=== PATIENT | male | born 1945 | race Caucasian/White ===

== ENCOUNTER 2016-11-15 22:12 | Emergency (ER) | payer MEDICARE, BC ==
[2016-11-15] MEDS ORDERED: ACETAMINOPHEN TAB 500 MG TAB PO STA (22:46)
[2016-11-15] MEDS ORDERED: IBUPROFEN IV 600 MG in SODIUM CHLORIDE 0.9% 250 ML IV STA (22:46)
--- NOTE | 2016-11-15 22:50 | ED ---
General Adult HPI - General Chief complaint: Chest Pain Stated complaint: Chest discomfort Time Seen by Provider: 11/15/16 22:20 Source: patient, RN notes reviewed Mode of arrival: ambulatory Limitations: no limitations - History of Present Illness Initial comments: This is a 8-year-old male who presents to the emergency department with past medical history significant for diabetes hypertension high cholesterol. Patient states he comes in today because he started having chest pain this afternoon is in the center chest and is no radiation of the pain. Patient states it's worse with taking a deep breath and it's better if he leans forward and worse if he lays flat. Patient states he went for a walk they did not improve his symptoms. Patient states he did not eat anything for dinner and it continued to bother him if he took deep breaths. Patient states taking shallow breaths he doesn't have any pain at all. Patient was unaware that he had a fever when he came in. Patient denies any cough or cold-like symptoms per patient denies any sore throat. Patient denies any patient denies numbness weakness. Patient denies any lightheadedness dizziness or near syncopal episode. Patient denies any abdominal pain. Patient denies nausea vomiting or diarrhea. Patient denies any rashes lesions or any areas of redness that are unusual on his body. Patient states he did get the flu shot. - Related Data Home Medications Medication Instructions Recorded Confirmed ALPRAZolam [Xanax] 0.25 mg PO BID PRN 11/15/16 11/15/16 Ascorbic Acid [Vitamin C] 1,000 mg PO DAILY 11/15/16 11/15/16 Cinnamon Bark [Cinnamon] 1,000 mg PO DAILY 11/15/16 11/15/16 Hydrochlorothiazide [Hydrodiuril] 25 mg PO DAILY 11/15/16 11/15/16 Ibuprofen [Motrin] 800 mg PO TID PRN 11/15/16 11/15/16 Lisinopril [Zestril] 20 mg PO HS 11/15/16 11/15/16 Multivit-Min/FA/Lycopen/Lutein 1 tab PO DAILY 11/15/16 11/15/16 [Centrum Silver Men Tablet] [place]-3 Fatty Acids/Fish Oil [Fish 1 cap PO BID 11/15/16 11/15/16 Oil 1,000 mg Softgel] Omeprazole 20 mg PO DAILY 11/15/16 11/15/16 Potassium Chloride [K-Tab ER] 10 meq PO BID 11/15/16 11/15/16 Pravastatin Sodium [Pravachol] 40 mg PO DAILY 11/15/16 11/15/16 Vitamin E (Dl,Tocopheryl Acet) 400 unit PO DAILY 11/15/16 11/15/16 [Vitamin E] metFORMIN HCL [Glucophage] 1,000 mg PO BID 11/15/16 11/15/16 sitaGLIPtin [Januvia] 100 mg PO DAILY 11/15/16 11/15/16 Previous Rx's Medication Instructions Recorded predniSONE 40 mg PO DAILY #8 tab 11/16/16 Allergies Allergy/AdvReac Type Severity Reaction Status Date / Time No Known Allergies Allergy Verified 11/15/16 22:38 Review of Systems ROS Statement: Those systems with pertinent positive or pertinent negative responses have been documented in the HPI. ROS Other: All systems not noted in ROS Statement are negative. Past Medical History Past Medical History: Diabetes Mellitus, Hyperlipidemia, Hypertension History of Any Multi-Drug Resistant Organisms: None Reported Past Surgical History: Orthopedic Surgery Additional Past Surgical History / Comment(s): lt knee,carpal tunnel Past Psychological History: Anxiety Smoking Status: Never smoker Past Alcohol Use History: Rare Past Drug Use History: None Reported General Exam - General Exam Comments Initial Comments: GENERAL: Patient is well-developed and well-nourished. Patient is nontoxic and well- hydrated and is in mild distress. ENT: Neck is soft and supple. No significant lymphadenopathy is noted. Oropharynx is clear. Moist mucous membranes. Neck has full range of motion without eliciting any pain. EYES: The sclera were anicteric and conjunctiva were pink and moist. Extraocular movements were intact and pupils were equal round and reactive to light. Eyelids were unremarkable. PULMONARY: Unlabored respirations. Good breath sounds bilaterally. No audible rales rhonchi or wheezing was noted. CARDIOVASCULAR: Patient is tachycardic in the 120 beats a minute ABDOMEN: Soft and nontender with normal bowel sounds. No palpable organomegaly was noted. There is no palpable pulsatile mass. SKIN: Skin is clear with no lesions or rashes and otherwise unremarkable. NEUROLOGIC: Patient is alert and oriented x3. Cranial nerves II through XII are grossly intact. Motor and sensory are also intact. Normal speech, volume and content. Symmetrical smile. MUSCULOSKELETAL: Normal extremities with adequate strength and full range of motion. No lower extremity swelling or edema. No calf tenderness. LYMPHATICS: No significant lymphadenopathy is noted PSYCHIATRIC: Normal psychiatric evaluation. Normal interpersonal interactions appears functionally intact in deals appropriately with others. No signs of depression. No signs of anxiety. Limitations: no limitations Course Vital Signs 11/15/16 11/15/16 11/16/16 22:16 23:36 00:13 Temperature 101.5 F H 99.4 F Pulse Rate 130 H 104 H Pulse Rate [ 109 H Right Radial] Respiratory 24 18 Rate Blood Pressure 145/90 138/79 O2 Sat by Pulse 97 99 Oximetry Medical Decision Making - Medical Decision Making EKG shows sinus tachycardia at 120 bpm DC interval is 182 QRS is 98 QT interval 302 QTC is 426. Patient's EKG shows no ST segment elevation or depression. Patient does have some Q waves in leads 3 and aVF there is no old EKG to compare to. Patient's chest x-ray shows no acute abnormality. I spoke with Dr. Martins and he agrees the patient sounds like he has pericarditis and since his symptoms started at noon today and there is no enzyme elevation I felt comfortable sending the patient home and he will follow up with Dr. Martins - Lab Data Result diagrams: 11/15/16 23:08 11/15/16 23:08 Lab Results 11/15/16 11/15/16 11/15/16 Range/Units 23:05 23:05 23:08 WBC (3.8-10.6) k/uL RBC (4.30-5.90) m/uL Hgb (13.0-17.5) gm/dL Hct (39.0-53.0) % MCV (80.0-100.0) fL MCH (25.0-35.0) pg MCHC (31.0-37.0) g/dL RDW (11.5-15.5) % Plt Count (150-450) k/uL Neutrophils % % Lymphocytes % % Monocytes % % Eosinophils % % Basophils % % Neutrophils # (1.3-7.7) k/uL Lymphocytes # (1.0-4.8) k/uL Monocytes # (0-1.0) k/uL Eosinophils # (0-0.7) k/uL Basophils # (0-0.2) k/uL PT (9.0-12.0) sec INR (<1.1) APTT (22.0-30.0) sec Sodium (137-145) mmol/L Potassium (3.5-5.1) mmol/L Chloride (98-107) mmol/L Carbon Dioxide (22-30) mmol/L Anion Gap mmol/L BUN (9-20) mg/dL Creatinine (0.66-1.25) mg/dL Est GFR (MDRD) Af Amer (>60 ml/min/1.73 sqM) Est GFR (MDRD) Non-Af (>60 ml/min/1.73 sqM) Glucose (74-99) mg/dL Plasma Lactic Acid Darryn (0.7-2.0) mmol/L Calcium (8.4-10.2) mg/dL Total Bilirubin (0.2-1.3) mg/dL AST (17-59) U/L ALT (21-72) U/L Alkaline Phosphatase (38-126) U/L Total Creatine Kinase 92 (55-170) U/L CK-MB (CK-2) 1.2 (0.0-2.4) ng/mL CK-MB (CK-2) Rel Index 1.3 Troponin I <0.012 (0.000-0.034) ng/mL Total Protein (6.3-8.2) g/dL Albumin (3.5-5.0) g/dL Urine Color Yellow Urine Appearance Clear (Clear) Urine pH 5.5 (5.0-8.0) Ur Specific Comfort 1.013 (1.001-1.035) Urine Protein Trace H (Negative) Urine Glucose (UA) 4+ H (Negative) Urine Ketones 1+ H (Negative) Urine Blood Negative (Negative) Urine Nitrite Negative (Negative) Urine Bilirubin Negative (Negative) Urine Urobilinogen <2.0 (<2.0) mg/dL Ur Leukocyte Esterase Negative (Negative) Influenza Type A RNA Not Detected (Not Detectd) Influenza Type B (PCR) Not Detected (Not Detectd) 11/15/16 11/15/16 11/15/16 Range/Units 23:08 23:08 23:08 WBC 10.5 (3.8-10.6) k/uL RBC 4.29 L (4.30-5.90) m/uL Hgb 13.9 (13.0-17.5) gm/dL Hct 38.9 L (39.0-53.0) % MCV 90.6 (80.0-100.0) fL MCH 32.3 (25.0-35.0) pg MCHC 35.7 (31.0-37.0) g/dL RDW 12.5 (11.5-15.5) % Plt Count 159 (150-450) k/uL Neutrophils % 84 % Lymphocytes % 7 % Monocytes % 7 % Eosinophils % 1 % Basophils % 0 % Neutrophils # 8.8 H (1.3-7.7) k/uL Lymphocytes # 0.7 L (1.0-4.8) k/uL Monocytes # 0.7 (0-1.0) k/uL Eosinophils # 0.1 (0-0.7) k/uL Basophils # 0.0 (0-0.2) k/uL PT (9.0-12.0) sec INR (<1.1) APTT (22.0-30.0) sec Sodium 136 L (137-145) mmol/L Potassium 4.4 (3.5-5.1) mmol/L Chloride 102 (98-107) mmol/L Carbon Dioxide 20 L (22-30) mmol/L Anion Gap 14 mmol/L BUN 22 H (9-20) mg/dL Creatinine 1.00 (0.66-1.25) mg/dL Est GFR (MDRD) Af Amer >60 (>60 ml/min/1.73 sqM) Est GFR (MDRD) Non-Af >60 (>60 ml/min/1.73 sqM) Glucose 244 H (74-99) mg/dL Plasma Lactic Acid Darryn 1.5 (0.7-2.0) mmol/L Calcium 9.4 (8.4-10.2) mg/dL Total Bilirubin 1.5 H (0.2-1.3) mg/dL AST 27 (17-59) U/L ALT 47 (21-72) U/L Alkaline Phosphatase 55 (38-126) U/L Total Creatine Kinase (55-170) U/L CK-MB (CK-2) (0.0-2.4) ng/mL CK-MB (CK-2) Rel Index Troponin I (0.000-0.034) ng/mL Total Protein 7.0 (6.3-8.2) g/dL Albumin 4.4 (3.5-5.0) g/dL Urine Color Urine Appearance (Clear) Urine pH (5.0-8.0) Ur Specific Comfort (1.001-1.035) Urine Protein (Negative) Urine Glucose (UA) (Negative) Urine Ketones (Negative) Urine Blood (Negative) Urine Nitrite (Negative) Urine Bilirubin (Negative) Urine Urobilinogen (<2.0) mg/dL Ur Leukocyte Esterase (Negative) Influenza Type A RNA (Not Detectd) Influenza Type B (PCR) (Not Detectd) 11/15/16 Range/Units 23:08 WBC (3.8-10.6) k/uL RBC (4.30-5.90) m/uL Hgb (13.0-17.5) gm/dL Hct (39.0-53.0) % MCV (80.0-100.0) fL MCH (25.0-35.0) pg MCHC (31.0-37.0) g/dL RDW (11.5-15.5) % Plt Count (150-450) k/uL Neutrophils % % Lymphocytes % % Monocytes % % Eosinophils % % Basophils % % Neutrophils # (1.3-7.7) k/uL Lymphocytes # (1.0-4.8) k/uL Monocytes # (0-1.0) k/uL Eosinophils # (0-0.7) k/uL Basophils # (0-0.2) k/uL PT 10.6 (9.0-12.0) sec INR 1.1 (<1.1) APTT 21.0 L (22.0-30.0) sec Sodium (137-145) mmol/L Potassium (3.5-5.1) mmol/L Chloride (98-107) mmol/L Carbon Dioxide (22-30) mmol/L Anion Gap mmol/L BUN (9-20) mg/dL Creatinine (0.66-1.25) mg/dL Est GFR (MDRD) Af Amer (>60 ml/min/1.73 sqM) Est GFR (MDRD) Non-Af (>60 ml/min/1.73 sqM) Glucose (74-99) mg/dL Plasma Lactic Acid Darryn (0.7-2.0) mmol/L Calcium (8.4-10.2) mg/dL Total Bilirubin (0.2-1.3) mg/dL AST (17-59) U/L ALT (21-72) U/L Alkaline Phosphatase (38-126) U/L Total Creatine Kinase (55-170) U/L CK-MB (CK-2) (0.0-2.4) ng/mL CK-MB (CK-2) Rel Index Troponin I (0.000-0.034) ng/mL Total Protein (6.3-8.2) g/dL Albumin (3.5-5.0) g/dL Urine Color Urine Appearance (Clear) Urine pH (5.0-8.0) Ur Specific Comfort (1.001-1.035) Urine Protein (Negative) Urine Glucose (UA) (Negative) Urine Ketones (Negative) Urine Blood (Negative) Urine Nitrite (Negative) Urine Bilirubin (Negative) Urine Urobilinogen (<2.0) mg/dL Ur Leukocyte Esterase (Negative) Influenza Type A RNA (Not Detectd) Influenza Type B (PCR) (Not Detectd) Disposition Clinical Impression: Viral illness Disposition: HOME SELF-CARE Instructions: Acute Pericarditis (ED), Viral Syndrome (ED) Prescriptions: predniSONE 40 mg PO DAILY #8 tab Referrals: Arsenio Martins MD [Primary Care Provider] - 1-2 days Time of Disposition: 00:42
[2016-11-15] MEDS: SODIUM CHLORIDE 0.9% 500 ML IV SCH ×2 (23:04→23:19)
[2016-11-15 23:20] LABS: Basophils % (A) 0 %; CH 32.5; Eosinophils # (A) 0.1 k/uL (0-0.7); Eosinophils % (A) 1 %; HCT 38.9 % (39.0-53.0); HDW 2.79; HGB 13.9 gm/dL (13.0-17.5); Luc # (Auto) 0.17; Luc % (Auto) 2; Lymphocytes # (A) 0.7 k/uL (1.0-4.8); Lymphocytes % (A) 7 %; MCH 32.3 pg (25.0-35.0); MCHC 35.7 g/dL (31.0-37.0); MCV 90.6 fL (80.0-100.0); Mean Platelet Volume 6.9; Monocytes # (A) 0.7 k/uL (0-1.0); Monocytes % (A) 7 %; Neutrophils # (A) 8.8 k/uL (1.3-7.7); Neutrophils % (A) 84 %; RBC 4.29 m/uL (4.30-5.90); RDW 12.5 % (11.5-15.5); WBC 10.5 k/uL (3.8-10.6); WBC (Perox) 10.82
[2016-11-15 23:27] LABS: INR 1.1 (<1.1); Prothrombin Time 10.6 sec (9.0-12.0)
[2016-11-15 23:28] LABS: ALT 47 U/L (21-72); AST 27 U/L (17-59); Alkaline Phosphatase 55 U/L (38-126); Anion Gap 14 mmol/L; Blood Urea Nitrogen 22 mg/dL (9-20); Calcium 9.4 mg/dL (8.4-10.2); Carbon Dioxide 20 mmol/L (22-30); Chloride 102 mmol/L (98-107); Glucose 244 mg/dL (74-99); Non-African American GFR(MDRD) >60 (>60 ml/min/1.73 sqM); Potassium 4.4 mmol/L (3.5-5.1); Sodium 136 mmol/L (137-145); Total Bilirubin 1.5 mg/dL (0.2-1.3)
[2016-11-15 23:29] LABS: Appearance,Urine Clear (Clear); Bilirubin,Urine Negative (Negative); Glucose,Urine (UA) 4+ (Negative); Ketones,Urine 1+ (Negative); Leukocyte Esterase,Urine Negative (Negative); Nitrite,Urine Negative (Negative); PH, Urine 5.5 (5.0-8.0); Protein,Urine Trace (Negative); Specific Gravity,Urine 1.013 (1.001-1.035); UA Billing (MACRO vs. MICRO) CHEM; Urobilinogen,Urine <2.0 mg/dL (<2.0)
[2016-11-15 23:38] LABS: Creatine Kinase 92 U/L (55-170)
[2016-11-15 23:52] LABS: Creatine Kinase MB 1.2 ng/mL (0.0-2.4); Troponin I <0.012 ng/mL (0.000-0.034)
--- NOTE | 2016-11-16 00:07 | XR ---
Chest PA and lateral views INDICATION: Fever COMPARISON: None. FINDINGS: PA and lateral views of the chest are obtained. The cardiomediastinal silhouette is within normal limits. Lungs are clear. No pleural effusion or pneumothorax. Flattening of the hemidiaphragms is suggestive of chronic obstructive pulmonary disease. Bony elements are within normal limits. IMPRESSION: No radiographic evidence of acute cardiopulmonary disease.
[2016-11-16 00:14] VITALS: RESP 18
[2016-11-16] MEDS ORDERED: methylPREDNISolone SOD SUCCI 125 MG/2 ML VIAL IV STA (00:29)
[2016-11-16] MEDS ORDERED: KETOROLAC 60 MG/2 ML VIAL IVP STA (00:36)
[2016-11-16 00:57] VITALS: BP 138/81; PULSE 98; TEMP 100
== END 2016-11-16 00:57 | disposition home or self-care (01) ==
LOC: EC 22:12
DX: B34.9 Viral infection, unspecified (principal); R00.0 Tachycardia, unspecified; R07.89 Other chest pain; E11.9 Type 2 diabetes mellitus without complications; E78.5 Hyperlipidemia, unspecified; I10 Essential (primary) hypertension; Z79.84 Long term (current) use of oral hypoglycemic drugs; Z79.899 Other long term (current) drug therapy
CPT/HCPCS: 99285; 96374; 96375 ×2; 96361 ×2; 36415; 93005; 80053; 82550; 82553; 83605; 84484; 85025; 85610; 85730; 81003; 87040; 87086; 87502; 71020; J2930; J1885; J1741

== ENCOUNTER → 2018-09-03 | Outpatient (CLI) | payer MEDICARE, BC ==
--- NOTE | 2018-09-03 14:02 | XR ---
EXAMINATION TYPE: XR chest 2V DATE OF EXAM: 09/03/2018 COMPARISON: Chest x-ray November 15, 2016. HISTORY: Presurgical study. TECHNIQUE: Frontal and lateral views of the chest are obtained. FINDINGS: Cannot exclude underlying emphysematous change. There is no focal air space opacity, pleura l effusion, or pneumothorax seen. The cardiac silhouette size is within normal limits. The osseous structures are intact. IMPRESSION: No acute cardiopulmonary process. No significant change from prior.
== END | disposition home or self-care (01) ==
LOC: RADXRMAIN 13:47
PROVIDERS: ATTEND Internal Medicine
DX: Z01.818 Encounter for other preprocedural examination (principal)
CPT/HCPCS: 71046

== ENCOUNTER → 2022-03-01 | Outpatient (CLI) | payer MEDICARE, BC ==
--- NOTE | 2022-03-02 08:33 | XR ---
EXAMINATION TYPE: XR lumbar spine 2 or 3V DATE OF EXAM: 03/01/2022 5:36 PM INDICATION: Patient age:Male; 76 years old; Reason for study: J69.0 PNEUMONITIS DUE TO INHALATION OF FOOD AND VO; PHH. COMPARISON: None TECHNIQUE: Frontal, lateral and coned in L5-S1 lateral views of the spine. FINDINGS: Disc degeneration changes most pronounced at L3-L4 and L4-5 with endplate sclerosis and ost eophytes. The spinal alignment is grossly maintained. No evidence of any acute osseous pathology vert ebral bodies are maintained in height. Scattered facet joint arthropathy seen throughout the spine wi th at least mild L4-L5 and L5-S1 neural foraminal stenosis. IMPRESSION: Mild disc degeneration changes most pronounced in the lower thoracic spine with facet joint arthropat hy and at least mild L4-L5 and L5-S1 neural foraminal stenosis.
== END | disposition home or self-care (01) ==
LOC: RADXRMAIN 17:16
PROVIDERS: ATTEND Internal Medicine Geriatric Medicine
DX: M51.26 Other intervertebral disc displacement, lumbar region (principal); M47.817 Spondylosis without myelopathy or radiculopathy, lumbosacral region; M99.73 Connective tissue and disc stenosis of intervertebral foramina of lumbar region
CPT/HCPCS: 72100

== ENCOUNTER → 2022-03-20 | Outpatient (CLI) | payer MEDICARE, BC ==
--- NOTE | 2022-03-20 10:48 | MR ---
EXAMINATION TYPE: MR lumbar spine wo/w con DATE OF EXAM: 03/20/2022 COMPARISON: X-ray 03/01/2022 HISTORY: Pain TECHNIQUE: T1 and T2 axial and sagittal images of the lumbar spine are submitted. FINDINGS: There is no abnormal signal seen within the visualized spinal cord or paraspinal soft tissu es. At T11-T12 there is severe degenerative disc disease with vacuum disc. This level is not included in the [id number] on axial images. At [id number] there is minimal left paracentral disc bulging but no canal stenosis, discrete herniatio n or foraminal encroachment. At L1-2 there is no disc herniation, degenerative disc disease, or canal stenosis. No foraminal encro achment. At L2-3 there is no degenerative disc disease or disc herniation. No foraminal encroachment. No canal stenosis. Mild hypertrophic changes of the facets. At L3-4 there is severe degenerative disc disease with discogenic marrow changes. Broad-based disc pr otrusion greater paracentrally and laterally left with hypertrophic change of the facets and ligament um flavum. Severe bilateral foraminal encroachment and canal stenosis. At L4-5 there is grade 1 anterolisthesis with advanced severe facet arthropathy and ligamentum flavum hypertrophy. Circumferential disc bulging. There is severe canal stenosis and bilateral foraminal en croachment. At L5-S1 there is no disc herniation or canal stenosis. Mild degenerative disc disease and hypertroph ic change of the facets. No significant foraminal encroachment. IMPRESSION: 1. Severe degenerative disc disease L3-4 and L4-5 with grade 1 anterolisthesis L4-L5. Severe canal st enosis due to disc protrusion and hypertrophic changes at both levels with severe foraminal encroachm ent. 2. Severe degenerative disc disease T11-T12 with sagittal disc protrusion which is not included in fi eld of view on the axial images. 3. Tiny possible lower pole left renal calculus noted by plain film x-ray measuring 3 mm not well-see n by MRI.
== END | disposition home or self-care (01) ==
LOC: RADMRIMAIN 09:29
PROVIDERS: ATTEND Internal Medicine Geriatric Medicine
DX: M51.36 Other intervertebral disc degeneration, lumbar region (principal); M51.34 Other intervertebral disc degeneration, thoracic region; M48.05 Spinal stenosis, thoracolumbar region; M51.24 Other intervertebral disc displacement, thoracic region
CPT/HCPCS: 72158; A9585